=== PATIENT | female | born 1975 | race Caucasian/White ===

== ENCOUNTER 2021-02-11 06:14 | Day surgery (SDC) | payer OTHER ==
[~2021-02-11 06:14] MED LIST: KETO10TA2 PO; TYLENOL-CODEINE1 TAB PO
[2021-02-11] MEDS ORDERED: PROTONIX20 MG PO (07:56)
== END 2021-02-11 09:30 | disposition home or self-care (01) ==
LOC: AMB-ENDOS 06:14
PROVIDERS: ATTEND Surgery
DX: D13.1 Benign neoplasm of stomach (principal); K44.9 Diaphragmatic hernia without obstruction or gangrene; Z20.822 Contact with and (suspected) exposure to COVID-19

== ENCOUNTER 2022-03-09 05:55 | Day surgery (SDC) | payer OTHER ==
[~2022-03-09] VITALS: Ht 162.6 cm; Wt 77.1 kg
[~2022-03-09 05:55] MED LIST changes: +PROTONIX20 MG PO
[2022-03-09] MEDS ORDERED: SURFAK240 M1 PO (09:12)
[2022-03-09] MEDS ORDERED: PEPCID AC20 MG PO (09:12)
[2022-03-09] MEDS ORDERED: ULTRACET PO (09:13)
== END 2022-03-09 13:25 | disposition home or self-care (01) ==
LOC: CIR.AMB 05:55
PROVIDERS: ATTEND Surgery
DX: K80.10 Calculus of gallbladder with chronic cholecystitis without obstruction (principal); K42.9 Umbilical hernia without obstruction or gangrene; I10 Essential (primary) hypertension